=== PATIENT | female | born 1985 | race Caucasian/White ===

== ENCOUNTER 2018-08-12 12:50 | Outpatient (CLI) | payer MEDICAID ==
[2018-08-12 17:32] LABS: BASOPHILS % (AUTO) 0.6 %; EOSINOPHILS # (AUTO) 0.1 10^3/uL (0.0-0.7); EOSINOPHILS % (AUTO) 2.1 %; HGB - HEMOGLOBIN 14.7 g/dL (12.0-16.0); LYMPHOCYTES # (AUTO) 2.1 10^3/uL (1.5-3.5); LYMPHOCYTES % (AUTO) 37.8 %; MEAN CORPUSCULAR HEMOGLOBIN 29.8 pg (27.0-31.0); MEAN CORPUSCULAR VOLUME 90.3 fL (81.0-99.0); MEAN PLATELET VOLUME 7.8 fL (7.9-10.8); MONOCYTES # (AUTO) 0.4 10^3/uL (0.0-1.0); MONOCYTES % (AUTO) 6.7 %; NEUTROPHILS % (AUTO) 52.8 %; PLT - PLATELET COUNT 235 10^3/uL (130-450); RED BLOOD COUNT 4.92 10^6/uL (4.20-5.40); WHITE BLOOD COUNT 5.6 x10^3/uL (4.8-10.8)
[2018-08-12 17:42] LABS: ALBUMIN 4.5 g/dL (3.2-5.5); ALBUMIN/GLOBULIN RATIO 1.6 (1.0-2.2); BILIRUBIN,TOTAL 1.2 mg/dL (0.2-1.0); CALCIUM 9.4 mg/dL (8.5-10.3); CREATININE 0.7 mg/dL (0.4-1.0); TOTAL PROTEIN 7.3 g/dL (6.7-8.2)
== END 2018-08-12 12:51 | disposition home or self-care (01) ==
LOC: LAB.F 12:50
PROVIDERS: ATTEND Physician Assistant Medical
DX: Z00.00 Encounter for general adult medical examination without abnormal findings (principal); Z13.29 Encounter for screening for other suspected endocrine disorder; Z13.0 Encounter for screening for diseases of the blood and blood-forming organs and certain disorders involving the immune mechanism
CPT/HCPCS: 36415; 80050

== ENCOUNTER 2019-05-11 08:00 | Outpatient (CLI) | payer MEDICAID, OTHER ==
[2019-05-11 22:35] LABS: CANDIDA GROUP DNA POSITIVE (NEGATIVE); CANDIDA KRUSEI DNA NEGATIVE (NEGATIVE); TRICHOMONAS VAGINALIS DNA NEGATIVE (NEGATIVE)
== END 2019-05-11 23:59 | disposition home or self-care (01) ==
LOC: LAB.R 08:00
PROVIDERS: ATTEND Nurse Practitioner Obstetrics & Gynecology
DX: N76.1 Subacute and chronic vaginitis (principal)
CPT/HCPCS: 87661; 87801

== ENCOUNTER 2021-03-26 16:53 | Outpatient (CLI) | payer BC ==
--- NOTE | 2021-03-27 11:14 | Ultrasound Report ---
PROCEDURE: Pelvic Complete INDICATIONS: IUD LOCALIZATION TECHNIQUE: Real-time transabdominal scanning was performed of the pelvic organs, with image documentation. Patie nt declined endovaginal imaging. COMPARISON: None FINDINGS: Uterus: Uterus is anteverted and normal in size at 8.9 x 3.1 x 5.3 cm. And IUD is situated appropri ately in position in the fundal endometrium. The endometrium measures roughly 4 mm. The uterine myome trium is slightly heterogeneous and there is an ill-defined rounded mass in the left posterior fundus measuring 1.6 cm, presumed fibroid. Ovaries: Transabdominal appearance of the ovaries demonstrates a small complicated follicle within t he left ovary measuring 1.7 cm. The right ovary measures 2.0 x 1.3 x 1.6 cm for a volume of 2.1 cc. T he left ovary measures 2.0 x 1.8 x 2.6 cm for a volume of 4.6 cc. Normal vascularity in each ovary. N o suspicious adnexal masses. Other: No free pelvic fluid. IMPRESSION: 1. Satisfactory position of intrauterine device. 2. Small left posterior fundal fibroid. 3. Normal ovaries with probable corpus luteum in the left ovary. Reviewed by: Lois Crowell MD on 03/27/2021 11:12 AM PDT Approved by: Lois Crowell MD on 03/27/2021 11:12 AM PDT Station ID: [id number]
== END 2021-03-26 16:54 | disposition home or self-care (01) ==
LOC: DI 16:53
PROVIDERS: ATTEND Nurse Practitioner Family
DX: Z30.432 Encounter for removal of intrauterine contraceptive device (principal); D25.9 Leiomyoma of uterus, unspecified